=== PATIENT | male | born 1955 | race African-American/Black ===

== ENCOUNTER → 2019-06-07 17:23 | Outpatient (CLI) | payer MEDICAID ==
[~2019-06-07 17:23] MED LIST: COMBIGAN OPHT DR5 ML RIGHT EYE; FLORAJEN3 CAPS460 MG PO; GABAPENTIN100 MG PO; HUMULIN 70100 UNIT/1 SC; HYDROCHLOROTHIA25 MG PO; HYDROCODON-ACE1 EA10 PO; LEVAQUIN750 MG PO; LIPITOR40 MG PO; LUMIGAN 0.01%2.5 ML RIGHT EYE; PLAVIX75 MG PO; PRINIVIL20 MG PO; PROTONIX40 MG PO; TRUSOPT 2 % OPT10 ML RIGHT EYE
[2019-07-27 14:13] VITALS: BMI 36.6
== END | disposition home or self-care (01) ==
LOC: D.LABREF 17:23
PROVIDERS: ATTEND Podiatrist Foot & Ankle Surgery
DX: L03.115 Cellulitis of right lower limb (principal)

== ENCOUNTER → 2019-07-23 10:01 | Outpatient (CLI) | payer MEDICAID ==
[2019-07-27 14:13] VITALS: BMI 36.6
== END | disposition home or self-care (01) ==
LOC: D.CT 10:01
PROVIDERS: ATTEND Podiatrist Foot & Ankle Surgery
DX: E11.621 Type 2 diabetes mellitus with foot ulcer (principal); L97.519 Non-pressure chronic ulcer of other part of right foot with unspecified severity; I70.219 Atherosclerosis of native arteries of extremities with intermittent claudication, unspecified extremity

== ENCOUNTER 2019-07-26 12:17 | Inpatient (IN) | payer MEDICAID ==
[~2019-07-26] VITALS: Ht 167.6 cm; Wt 103.0 kg
--- NOTE | ~2019-07-26 | HEMODYNAMI ---
PATIENT:JIMENEZ MARTINEZ MEDICAL RECORD: [id number] : 53 LOCATION:D.MS [place] ADMISSION DATE: 07/26/19 Generatedon:07/28/201911:57 Patient name: JIMENEZ MARTINEZ Patient #: [id number] SSN: : 1955 Date of study: 07/28/2019 Page: Of Hemodynamic Procedure Report Patient Data Patient Demographics Procedure consent was obtained First Name: JIMENEZ Gender: Male Last Name: JUAN : 1955 Middle Initial: P Age: 63 year(s) Patient #: [id number] Race: Black Additional ID: [id number] Contact details Address: [address] [place] [address] State: [place] City: [place] Zip code: [address] Past Medical History Allergies: No known allergies Admission Admission Data Admission Date: 07/26/2019 Admission Time: 12:17 Room #: 2239 Height (in.): 66 BSA: 2.11 (m2) Height (cm.): 167.64 BMI: 36.48 (kg/m2) Weight (lbs.): 226 Weight (kg.): 102.51 Procedure Procedure Types Cath Procedure Peripheral Cath Diagnostic Procedure Seeing Eye Dog Trainer Peripheral Procedures Abd/Extremity Extremities Right Lower Ext Arterio Procedure Description Procedure Date Procedure Date: 07/28/2019 Procedure Start Time: 9:42 Procedure Staff Name Function Smita Lopez RT Resist Coater Developer Arcadio Stephen MD Additional personnel Robel Nam MD Performing Physician Sarah Ledbetter RN Nurse MICHAEL GUIDO RT Scrub Procedure Data Cath Procedure Fluoroscopy Diagnostic fluoroscopy Total fluoroscopy Time: time: 19.6 min 19.6 min Diagnostic fluoroscopy Total fluoroscopy dose: 882 dose: 882 mGy mGy Contrast Material Contrast Material Type Amount (ml) Isovue 300 190 Entry Location Entry Primary Successful Side Size Upsize Upsize Entry Closure Succes sful Closure Location (Fr) 1 (Fr) 2 (Fr) Remarks Device Remarks Femoral Exoseal artery Procedure Medications Medication Administration Route Dosage Heparin Flush Bag added to field 3 bags (1000units/500ml NS) Lidocaine 1% added to field 20 Heparin Bolus I.V. 5000 units Nitroglycerin IC/IA I.A. 300 mcg Nitroglycerin IC/IA I.A. 300 mcg Hemodynamics Rest BSA: 2.11 (m2) O2 Consumption: Estimated: 286.96 (ml/min) O2 Consumption indexed : Estimated:136 (ml/min/m) Pre Cath Intra NCS Post Cath Medications Time Medication Route Dose Verified Delivered Reason Notes Effec tiveness by by 9:26:26 Heparin Flush added 3 Robel Huston used for Bag to bags Viv Nam MD procedure (1000units/500ml field NS) 9:26:43 Lidocaine 1% added 20ml Robel Huston used for to vial Viv Nam MD procedure field 10:15:58 Heparin Bolus I.V. 5000 Robel Sarah used for units Anatoly Nam RN procedure 10:57:53 Nitroglycerin I.A. 300 Robel Huston used for IC/IA mcg Viv Nam MD procedure 11:31:48 Nitroglycerin I.A. 300 Robel Huston used for IC/IA mcg Viv Nam MD procedure MD Procedure Log Time Note 8:47:26 Patient Height : 66 inches 8:47:56 Patient Weight : 226 lbs 8:48:03 Use device set IR Diagnostic 8:48:05 Sterile Angiographic Pack opened to sterile field. 8:48:05 Tegaderm 4 x 4 (1626W) opened to sterile field. 8:48:06 Bag Decanter (2002S) opened to sterile field. 8:48:07 ACIST Manifold (09317) opened to sterile field. 8:48:08 ACIST Hand Control (10492) opened to sterile field. 8:48:09 ACIST Syringe (10556) opened to sterile field. 8:48:52 SHEATH 5FR Upton (QCV467) opened to sterile field. 8:48:52 BENTSON 145cm wire (F49112) opened to sterile field. 8:48:53 TUBING Contrast Injection High Pressure (MZC522W) opened to sterile field. 8:48:54 Micropuncture VSI 4FR kit opened to sterile field. 8:53:00 Sarah Ledbetter RN sent for patient. Start room use. 8:53:01 Time tracking: Regular hours (M-F 7:00 - 5:00) 8:53:06 Plan of Care:Hemodynamics will remain stable., Cardiac rhythm will remain stable., Comfort level will be maintained., Respiratory function will remain adequate., Patient/ family verbilizes understanding of procedure., Procedure tolerated without complication., Recovers from procedure without complications.. 8:53:15 Patient received from [employer] to Alert and oriented. Tansferred to table in Supine position. 8:53:18 Signed procedure consent form obtained from patient. 8:53:19 Warm blankets applied, and maria eugenia hugger turned on for patient comfort. 8:53:20 Correct patient and procedure confirmed by team. 8:53:21 ECG and BP/O2 sat monitors applied to patient. 8:53:22 - 8:53:30 H&P Date Dictated: 07/28/2019 Within 30 days and on chart.. 8:53:33 Pre-op teaching completed and patient verbalized understanding. 8:53:33 Pre-procedure instructions explained to patient. 8:53:36 Patient NPO since Midnight. 9:02:14 Patient allergic to No known allergies 9:02:20 Is the patient allergic to Iodine/contrast media? No. 9:02:36 Patient diabetic? Yes. 9:02:40 - 9:02:44 ----Pre-sedation anethsthesia assessment.----general anesthesia, see anesthesia notes for monitoring of patient during procedure 9:12:44 Previous problem with sedation/anesthesia? No ? 9:12:50 Pre procedure: right dorsailis pedis pulse Doppler 9:12:59 Pre procedure: left dorsailis pedis pulse Doppler 9:13:03 Pre procedure: right posterior tibial pulse Doppler 9:13:11 Pre procedure: left posterior tibial pulse Doppler 9:13:28 IV patent on arrival in right hand with D5/.45%NaCl at KVO. 9:13:37 Left groin area was prepped with chlora-prep and draped in sterile fashion 9:13:39 - 9:26:26 Heparin Flush Bag (1000units/500ml NS) 3 bags added to field was administered by Robel Nam MD; used for procedure; Verbal order read back and verified. 9:26:43 Lidocaine 1% 20ml vial added to field was administered by Robel Nam MD; used for procedure; Verbal order read back and verified. 9:41:54 --------ALL STOP TIME OUT------ 9:41:54 Physician arrived 9:41:56 Final Timeout: patient, procedure, and site verified with staff and physician. All members of the team are in agreement. 9:42:23 Fire Safety Assessment: A--An alcohol-based skin anteseptic being used preoperatively., C--Open oxygen or nitrous oxide is being used. 9:42:29 1) 90+ Normal kidney functon but urine findings or structural abnormalities or genetic trait point to kidney disease. 9:42:52 Full Disclosure recording started 9:42:52 Procedure started. 9:42:59 Local anesthetic to left femerol artery with Lidocaine 1% by Robel Nam MD.INITIAL ACCESS ONLY 9:43:02 Arterial access obtained using ultrasound guidance. 9:49:37 AMPLATZ Super Stiff 75cm wire ([id number]) opened to sterile field. 9:51:13 Angiodynamics Omniflush 5Fr 65cm (27177098) opened to sterile field. 9:52:21 GLIDE WIRE ANGLE 180cm (PQ1879) opened to sterile field. 9:56:40 GLIDE CATHETER 5FR ANGLED 65cm (CG507) opened to sterile field. 9:56:52 TORQUE DEVICE PLASTIC .038 ( TD01) opened to sterile field. 10:06:36 SHEATH 6FR Destination (RSR01) opened to sterile field. 10:08:08 ROADRUNNER .035 260 glide wire (G41038) opened to sterile field. 10:08:09 CXI SUPPORT .035 135 CM STR catheter (J72150) opened to sterile field. 10:08:19 ROUSSEAU 260 wire (W04454) opened to sterile field. 10:10:36 AMPLATZ Super stiff 180cm wire ([id number]) opened to sterile field. 10:12:36 SHEATH 6FR Upton (SQI567) opened to sterile field. 10:14:42 GLIDE WIRE ANGLE 260cm (IK8680) opened to sterile field. 10:15:58 Heparin Bolus 5000 units I.V. was administered by Sarah Ledbetter RN; used for procedure; Verbal order read back and verified. 10:22:27 CHOICE PT Extra Support J 300cm guide wire ([id number]) opened to steril e field. 10:23:12 Hawkone Medium Atherectomy System (H1-M) opened to sterile field. 10:27:49 INFLATOR BasixTOUCH (WQ4273) opened to sterile field. 10:34:51 Inflate balloon Inflation number: 1 A Evercross 5 x 8 x 135 Balloon ([id number]) was prepped and advanced across the Undefined1 , then inflated . 10:40:39 Inflate balloon Inflation number: 1 A Evercross 4 x 4 x 135 Balloon ([id number]) was prepped and advanced across the Undefined2 , then inflated . 10:45:55 Inflate balloon Inflation number: 2 A IN.PACT Admiral 4 x 80 x 130 DCB Balloon ([id number]) was prepped and advanced across the Undefined1 , then inflated to 0 DALLIN for 0:00 (min:sec) . 10:56:50 Inflate balloon Inflation number: 1 A CHOCOLATE 2.5 x 120 x 150 balloon ([id number]) was prepped and advanced across the Undefined3 , then inflated to 0 DALLIN for 0:00 (min:sec) . 10:57:53 Nitroglycerin IC/IA 300 mcg I.A. was administered by Robel Nam MD; used for procedure; Verbal order read back and verified. 11:16:58 Inflate balloon Inflation number: 1 A CHOCOLATE 3.0 x 120 x 150 balloon ([id number]) was prepped and advanced across the Undefined4 , then inflated . 11:24:44 Inflate balloon Inflation number: 1 A NANOCROSS ELITE 2.5MM-2 MM X 210 X 150 ([id number]) was prepped and advanced across the Undefined5 , then inflated . 11:31:48 Nitroglycerin IC/IA 300 mcg I.A. was administered by Robel Nam MD; used for procedure; Verbal order read back and verified. 11:47:48 EXOSEAL 6Fr (EX600) opened to sterile field. 11:48:18 Sheath removed intact; hemostasis achieved with Exoseal to the Femoral artery. 11:48:18 A sheath was inserted into the Femoral artery 11:49:05 Procedure ended.(Physican Out) 11:49:19 Fluoroscopy time 19.60 minutes. 11:49:29 Fluoroscopy dose: 882 mGy 11:49:29 Flurop Dose total: 882 11:49:38 Contrast amount:Isovue 300 190ml. 11:49:40 Procedure and supply charges have been captured, reviewed, submitted an d are correct. 11:51:06 Post Procedure Pulses reassessed and unchanged 11:51:11 Report given to Med/Surg. 11:51:50 Full Disclosure recording stopped Intervention Summary Intervention Notes Time ActionType Lesion and Equipment Used Action# Pressure Duration Attributes 10:34:51 Inflate Undefined1 Evercross 5 x 8 x 1 0 00:00 balloon 135 Balloon ([id number]) 10:40:39 Inflate Undefined2 Evercross 4 x 4 x 1 0 00:00 balloon 135 Balloon ([id number]) 10:45:55 Inflate Undefined1 IN.PACT Admiral 4 2 0 00:00 balloon x 80 x 130 DCB Balloon ([id number]) 10:56:50 Inflate Undefined3 CHOCOLATE 2.5 x 1 0 00:00 balloon 120 x 150 balloon ([id number]) 11:16:58 Inflate Undefined4 CHOCOLATE 3.0 x 1 0 00:00 balloon 120 x 150 balloon ([id number]) 11:24:44 Inflate Undefined5 NANOCROSS ELITE 1 0 00:00 balloon 2.5MM-2 MM X 210 X 150 ([id number]) Device Usage Item Name Manufacture Quantity Catalog Number [facility] nt Minimal Lot# / Charge Number Stock Stock Serial# Code Tegaderm 4 x 4 3M 1 1626W [id number] 139106 27490 1 5 (1626W) Sterile Cardinal 1 [id number] 609790 18824 3 5 Angiographic Pack Health Bag Decanter Microtek 1 2001S 922901 08351 07115 3 5 (2001S) Medical Inc. ACIST Manifold Acist Medical 1 82784 997689 821822 39716 7 5 (91754) Systems Inc ACIST Hand Acist Medical 1 45491 431876 020500 89587 1 5 Control (03053) Systems Inc ACIST Syringe Acist Medical 1 56680 419888 946339 16076 9 20 (46812) Systems Inc BENTSON 145cm Cook Medical 1 N84745 865606 94884 5 5 wire (U35194) SHEATH 5FR Terumo 1 CET911 991281 757126 84524 5 5 Upton (GAT275) TUBING Contrast [facility] Medical 1 MBM698F 469759 549531 35466 8 5 Injection High Pressure (KSL662C) Micropuncture VSI VSI VASCULAR 1 7266V 601109 69709 1 5 4FR kit SOLUTIONS AMPLATZ Super [place] 1 [id number] 607628 895353 89835 5 5 Stiff 75cm wire Scientific ([id number]) Angiodynamics Angiodynamics 1 55450673 657976 296379 91140 8 5 Omniflush 5Fr 65cm (94302077) GLIDE WIRE ANGLE Terumo 1 NY6567 041091 255939 77572 4 5 180cm (GU5992) GLIDE CATHETER Terumo 1 CG507 613145 85485 7 5 5FR ANGLED 65cm (CG507) TORQUE DEVICE [place] 1 TD01 816013 623535 70484 8 5 PLASTIC .038 ( Scientific TD01) SHEATH 6FR Terumo 1 RSR01 357325 78229 16911 5 5 Destination (RSR01) ROADRUNNER .035 Cook Medical 1 U33513 035854 469935 33863 3 5 [id number] 260 glide wire (N45867) CXI SUPPORT .035 [employer] Medical 1 V25838 774511 983956 23229 4 5 2134929 135 CM STR catheter (O59645) ROUSSEAU 260 wire [facility] 1 Z05928 400117 78014 30447 3 5 (B12519) AMPLATZ Super [place] 1 [id number] 748225 423349 94005 1 5 stiff 180cm wire Scientific ([id number]) SHEATH 6FR Terumo 1 HKK988 708470 094541 76872 8 40 Upton (AGZ296) GLIDE WIRE ANGLE Terumo 1 YR5072 282289 843547 99958 3 5 260cm (XO0030) CHOICE PT Extra [place] 1 [id number] 622514 528032 53616 0 5 Support J 300cm Scientific guide wire (8674984P7) Hawkone Medium Medtronic 1 H1-M 998391 58880 964 5 Atherectomy System (H1-M) INFLATOR [facility] Medical 1 HZ4844 305412 104685 16406 6 5 BasixTOUCH (GJ6570) Evercross 5 x 8 x Medtronic 1 [id number] 609845 405702 74698 5 5 135 Balloon ([id number]) Evercross 4 x 4 x Medtronic 1 [id number] 133075 304926 67123 1 5 135 Balloon ([id number]) IN.PACT Admiral 4 Medtronic 1 [id number] 749766 706371 28891 6 5 [id number] x 80 x 130 DCB Balloon ([id number]) CHOCOLATE 2.5 x Medtronic 1 FQ54-740-27110 185153 229832 12104 4 5 [id number] 120 x 150 balloon O [id number] ([id number]) TW [id number] CHOCOLATE 3.0 x Medtronic 1 KQ34-416-54535 846525 538691 35478 7 5 120 x 150 balloon O ([id number]) TW NANOCROSS ELITE Medtronic 1 [id number] 285476 88480 8 1 2.5MM-2 MM X 210 X 150 ([id number]) EXOSEAL 6Fr Cardinal 1 EX600 424305 499454 64126 3 10 (EX600) Health Signature Audit [place] Stage Time Signature Unsigned Intra-Procedure 07/28/2019 Smita Lopez RT(R) 11:51:40 AM RT(R) 07/28/2019 11:56:35 AM Intra-Procedure 07/28/2019 Smita Lopez 11:57:34 AM RT(R) [id number] [place] [address]
--- NOTE | 2019-07-26 12:40 | NUR ---
ARRIVED TO ROOM 2239 AWAKE AND ALERT. RESP EVEN AND UNLABORED WITH NO DISTRESS NOTED. CAN EXPRESS NEEDS AND WANTS. NO C/O NOTED OR VOICED. ASSESSMENT COMPLETED. FOUL ODOR NOTED FROM RIGHT FOOT. WOUND CLEAN WITH NS AND CLEAN DRESSING APPLIED. C/L IN REACH AT BEDSIDE.
[2019-07-26] MEDS ORDERED: GABAPENTIN100 MG PO (12:48)
[2019-07-26] MEDS ORDERED: HYDROCODON-ACE1 EA10 PO (12:49)
[2019-07-26] MEDS ORDERED: PRINIVIL20 MG PO (12:51)
[2019-07-26] MEDS ORDERED: HYDROCHLOROTHIA25 MG PO (12:53)
[2019-07-26] MEDS ORDERED: LIPITOR40 MG PO (12:53)
[2019-07-26] MEDS ORDERED: COMBIGAN OPHT DR5 ML RIGHT EYE (12:54)
[2019-07-26] MEDS ORDERED: LUMIGAN 0.01%2.5 ML RIGHT EYE (12:55)
[2019-07-26] MEDS ORDERED: TRUSOPT 2 % OPT10 ML RIGHT EYE (12:56)
[2019-07-26 14:56] VITALS: BP 140/63; BMI 36.7
[2019-07-26 16:34] VITALS: BP 120/66
[2019-07-26 16:59] LABS: BASOPHILS 0.4 % (0-2); EOSINOPHILS 0.3 % (0-7); HEMATOCRIT 38.4 % (42.0-54.0); HEMOGLOBIN 13.1 g/dL (13.5-17.5); IMMATURE GRANULOCYTES 0.5 % (0-5); LYMPHOCYTES 23.5 % (15-50); MCH 31.7 pg (26.0-34.0); MCHC 34.1 g/dL (31.0-37.0); MEAN PLATELET VOLUME 10.1 fL (7.4-10.4); MONOCYTES 8.6 % (2-11); NEUTROPHILS 66.7 % (40-80); RBC 4.13 10x6/uL (4.20-6.10); RDW 13.1 % (11.5-14.5)
[2019-07-26 17:01] LABS: PLATELET COUNT 256 10x3/uL (130-400)
[2019-07-26 17:22] LABS: ALBUMIN 2.7 g/dL (3.4-5.0); ALKALINE PHOSPHATASE 80 U/L (46-116); ALT (SGPT) 17 U/L (10-68); BILIRUBIN - TOTAL 0.76 mg/dL (0.2-1.3); CALC OSMOLALITY 281 mosm/kg (275-300); CALCIUM 8.4 mg/dL (8.5-10.1); CARBON DIOXIDE 26.8 mmol/L (21.0-32.0); CHLORIDE - SERUM 94 mmol/L (98-107); CREATININE - SERUM 0.9 mg/dL (0.6-1.3); PROTEIN - SERUM 7.1 g/dL (6.4-8.2); SODIUM 131 mmol/L (136-145); UREA NITROGEN 22 mg/dL (7-18); eGFR NON AFRICAN AMERICAN 90 mL/min (90-120)
[2019-07-26 17:37] LABS: GLUCOSE 391 mg/dL (74-106)
[2019-07-26 20:41] VITALS: BP 112/62
[2019-07-27] VITALS (13 sets, daily range): BP systolic 103–145; BP diastolic 57–84; Ht 167.6 cm; Wt 103.0 kg
--- NOTE | 2019-07-27 06:16 | NUR ---
I have reviewed this patient and I concur with the Shift Assessment completed by the Licensed Practical Nurse today this shift.
[2019-07-27 07:12] LABS: ALBUMIN 2.8 g/dL (3.4-5.0); ALKALINE PHOSPHATASE 82 U/L (46-116); ALT (SGPT) 20 U/L (10-68); BILIRUBIN - TOTAL 0.88 mg/dL (0.2-1.3); CALC OSMOLALITY 279 mosm/kg (275-300); CALCIUM 8.9 mg/dL (8.5-10.1); CARBON DIOXIDE 27.1 mmol/L (21.0-32.0); CHLORIDE - SERUM 98 mmol/L (98-107); CREATININE - SERUM 0.9 mg/dL (0.6-1.3); POTASSIUM - SERUM 4.3 mmol/L (3.5-5.1); PROTEIN - SERUM 7.6 g/dL (6.4-8.2); SODIUM 135 mmol/L (136-145); UREA NITROGEN 19 mg/dL (7-18); eGFR NON AFRICAN AMERICAN 90 mL/min (90-120)
[2019-07-27 07:13] LABS: GLUCOSE 251 mg/dL (74-106)
[2019-07-27 07:19] LABS: BASOPHILS 0.2 % (0-2); EOSINOPHILS 0.5 % (0-7); HEMATOCRIT 40.2 % (42.0-54.0); HEMOGLOBIN 13.7 g/dL (13.5-17.5); IMMATURE GRANULOCYTES 0.8 % (0-5); LYMPHOCYTES 23.3 % (15-50); MCH 31.6 pg (26.0-34.0); MCHC 34.1 g/dL (31.0-37.0); MCV 92.6 fL (80.0-100.0); MEAN PLATELET VOLUME 10.4 fL (7.4-10.4); NEUTROPHILS 67.2 % (40-80); PLATELET COUNT 281 10x3/uL (130-400); RBC 4.34 10x6/uL (4.20-6.10); RDW 12.9 % (11.5-14.5); WBC 12.9 10x3/uL (4.8-10.8)
--- NOTE | 2019-07-27 08:00 | NUR ---
PATIENT READY FOR SURGERY. NO NEEDS AT THIS TIME.
--- NOTE | 2019-07-27 10:26 | NUR ---
FAMILY CALLED WITH SECURITY CODE. ASKED HOW HE WAS. I INFORMED THEM THAT HE WAS IN SURGERY BUT FINE WHEN HE LEFT ME. ASKED WHETHER OR NOT THIS WAS CONSIDERED A "SIMPLE SURGERY." I RESPONDED THAT ALL SURGERY'S HAVE THE ABILITY TO HAVE COMPLICATIONS THIS WAS ROUTINE. A MALE VOICE INTERJECTED THAT I WAS SPEAKING TO A 19 YEAR NURSE WHO WAS 69 YR OLD AND WAS FEELING UNDER THE WEATHER. PHONE WAS THEN DISCONNECTED.
--- NOTE | 2019-07-27 13:44 | NUR ---
PATIENT REQUESTING A NAP. BP CUFF REATTACHED. PATIENT STATED "I CAN'T SLEEP WITH ALL THIS ON ME" I REPLIED IT WAS TEMPORARY. CL IN REACH. PHONE IN REACH. PHONE CORD UNTANGLED FROM IV LINE. WCTM
--- NOTE | 2019-07-27 14:21 | MORECARE ---
CASE MANAGEMENT DISCHARGE SUMMARY PATIENT: JIMENEZ MARTINEZ UNIT: [id number] ADM DATE: 07/26/19 AGE: 63 : 54 SEX: M ROOM/BED: D.2239 AUTHOR: JORGE GEE PHYSICIAN: REFERRING PHYSICIAN: SAMIR WALLIS MD DATE OF SERVICE: 07/27/19 Discharge Plan Patient Name: JIMENEZ MARTINEZ Facility: [facility]:[place] : 1955 Planned Disposition: Home Anticipated Discharge Date: 07/29/19 Discharge Date: Expected LOS: 3 Initial Reviewer: [email or web address] Initial Review Date: 07/26/2019 Generated: 07/27/19 3:20 pm Patient Name: JIMENEZ MARTINEZ Page 18323 at 1421 All edits/amendments must be made on the electronic document DICTATION DATE: 07/27/191419 MEMBER SERVICES REPRESENTATIVE: CHANDRAKANT 07/27/19 142 RPT#: [id number] DC DATE: STATUS: ADM IN [facility] [address] [place] [address] END OF REPORT
--- NOTE | 2019-07-27 14:30 | MORECARE ---
CASE MANAGEMENT DISCHARGE SUMMARY PATIENT: JIMENEZ MARTINEZ UNIT: [id number] ADM DATE: 07/26/19 AGE: 63 : 54 SEX: M ROOM/BED: D.2239 AUTHOR: GERARD,DOC PHYSICIAN: REFERRING PHYSICIAN: SAMIR WALLIS MD DATE OF SERVICE: 07/27/19 Discharge Plan Patient Name: JIMENEZ MARTINEZ Facility: [facility]:[place] : 1955 Planned Disposition: Home Anticipated Discharge Date: 07/29/19 Discharge Date: Expected LOS: 3 Initial Reviewer: [email or web address] Initial Review Date: 07/26/2019 Generated: 07/27/19 3:30 pm Comments DCP- Discharge Planning Updated by [email or web address]: Salena Reece on 07/27/19 1:[address] DC PLAN: Return home with friend. ANTICIPATED DC NEEDS: Denied known dc needs. CM met with patient to complete initial dc planning assessment. CM educated patient on the CM role and verbal consent given by patient to complete assessment. CM verified patient's address, phone number, and emergency contact phone numbers. Patient lives at home with a friend. He reports he is independent in his care at home. At discharge patient plans to return home and feels this is a safe discharge. CM discussed availability of home health, rehab services, and medical equipment. Patient denied known discharge needs at this time. Patient reports his friend Gaurav Schmitz will transport him home at time of discharge. CM left contact number and encouraged him to call if his dc plan changes or he has dc needs. CM will continue to follow and will assist as needed with dc plans/needs. Salena Reece RN, [facility] DCPIA - Discharge Planning Initial Assessment Updated by [email or web address]: Salena Reece on 07/27/19 2:21 pm * Is the patient Alert and Oriented? Yes * How many steps to enter\exit or inside your home? none * PCP Dr. Paris Mireles * Pharmacy [facility] * Preadmission Environment Home with Family * ADLs Independent * Equipment Glucometer * List name and contact numbers for known caregivers / representatives who currently or will assist patient after discharge: Bridget Jain - [employer]- [phone] * Verbal permission to speak to the caregivers and representatives has been obtained from the patient. Yes * Community resources currently utilized None * Additional services required to return to the preadmission environment? No * Can the patient safely return to the preadmission environment? Yes * Has this patient been hospitalized within the prior 30 days at any hospital? No Last DP export: 07/27/19 1:21 Patient Name: JIMENEZ MARTINEZ Page 11640 at 1430 All edits/amendments must be made on the electronic document DICTATION DATE: 07/27/191429 PRODUCTION PLANNING SUPERVISOR: CHANDRAKANT 07/27/191429 RPT#: [id number] DC DATE: STATUS: ADM IN [facility] [address] [place] [address] END OF REPORT
[2019-07-27] MEDS ORDERED: HUMULIN 70100 UNIT/1 SC (16:20)
--- NOTE | 2019-07-27 18:00 | NUR ---
PATIENT LAYING ON RIGHT SIDE. NOTICED SOME BLOODY DRAINAGE COMING THROUGH BANDAGE. TREATED PAIN PER EMAR. CL IN REACH. WCTM
[2019-07-28] VITALS (9 sets, daily range): BP systolic 16–136; BP diastolic 54–79
--- NOTE | 2019-07-28 03:12 | NUR ---
I have reviewed this patient and I concur with the Shift Assessment completed by the Licensed Practical Nurse today this shift.
[2019-07-28 06:42] LABS: ALBUMIN 2.6 g/dL (3.4-5.0); ALKALINE PHOSPHATASE 77 U/L (46-116); ALT (SGPT) 17 U/L (10-68); BILIRUBIN - TOTAL 0.71 mg/dL (0.2-1.3); CALC OSMOLALITY 277 mosm/kg (275-300); CALCIUM 8.8 mg/dL (8.5-10.1); CARBON DIOXIDE 29.2 mmol/L (21.0-32.0); CHLORIDE - SERUM 99 mmol/L (98-107); CREATININE - SERUM 0.9 mg/dL (0.6-1.3); GLUCOSE 227 mg/dL (74-106); POTASSIUM - SERUM 4.1 mmol/L (3.5-5.1); PROTEIN - SERUM 7.7 g/dL (6.4-8.2); SODIUM 135 mmol/L (136-145); eGFR NON AFRICAN AMERICAN 90 mL/min (90-120)
[2019-07-28 06:44] LABS: UREA NITROGEN 14 mg/dL (7-18)
[2019-07-28 06:57] LABS: APTT 33.6 SECONDS (22.8-39.4); INR 1.1 (0.85-1.17); PROTIME 13.7 SECONDS (11.6-15.0)
[2019-07-28 07:18] LABS: BASOPHILS 0.3 % (0-2); EOSINOPHILS 0.2 % (0-7); HEMOGLOBIN 13.5 g/dL (13.5-17.5); IMMATURE GRANULOCYTES 0.7 % (0-5); LYMPHOCYTES 18.7 % (15-50); MCH 31.2 pg (26.0-34.0); MCHC 32.9 g/dL (31.0-37.0); MEAN PLATELET VOLUME 10.6 fL (7.4-10.4); MONOCYTES 14.1 % (2-11); PLATELET COUNT 294 10x3/uL (130-400); RBC 4.33 10x6/uL (4.20-6.10); RDW 13.2 % (11.5-14.5); WBC 13.4 10x3/uL (4.8-10.8)
[2019-07-28 07:19] LABS: MCV 94.7 fL (80.0-100.0)
--- NOTE | 2019-07-28 09:30 | NUR ---
PATIENT ABLE TO ANSWER WHO HE IS, HIS DATE, WHERE HE IS, AND WHO THE PRESIDENT IS. WELL WHO I AM. CL IN REACH. NO NEEDS AT THIS TIME.
--- NOTE | 2019-07-28 10:00 | NUR ---
SPOKE WITH FAMILY. HAD THE SECURITY CODE "BUTTON" SAID PT WAS IN HIS PROCEDURE. SAID IT WAS CORRECT THAT HE HAD A PROCEDURE YESTERDAY AND AGAIN TODAY. FAMILY SPOKE ABOUT HOW PT WAS A "BIG TIME ALCOHOLIC AND SMOKER UNTIL 5-6 YRS AGO WHEN HE QUIT IT ALL." SAID "HOPEFULLY WOULD TRY AND GET UP HERE TODAY IF HIS MOM WAS FEELING BETTER BECAUSE THEY LIVE AN HOUR AWAY."
--- NOTE | 2019-07-28 12:55 | NUR ---
AT 1213 UPON ARRIVAL TO PACU, PATIENT WAS YELLING AND VERY COMBATIVE. HE CONTINUES TO CLIMB OUT OF BED. THREE POINT RESTRAINTS WERE PLACED AT THIS TIME. NINA CASTILLO CRNA ADMINISTERED VERSED 2MG IV X1 IN PACU. WILL CONTINUE TO MONITOR.
--- NOTE | 2019-07-28 12:55 | NUR ---
PATIENT EXCITED TO BE ABLE TO DISCHARGE. UP WALKING AROUND. NO NEEDS AT THIS TIME.
--- NOTE | 2019-07-28 13:08 | NUR ---
CONSULTED ANESTHESIA AT 1240 REGARDING INCREASED CONFUSION, AGGRESSIVE BEHAVIOR, COMBATIVE. ORDERS RECEIVED PER DR. CARRERA TO ADMINISTER VERSED 2MG IV X1 IN PACU NOW. ORDERS RECEIVED AND IMPLEMENTED. WILL CONTINUE TO MONITOR.
--- NOTE | 2019-07-28 14:10 | NUR ---
PT ARRIVED TO UNIT. PT RESTING IN BED CURRENTLY. ATTACHED TO ICU MONITOR. VSS. WILL CONTINUE TO MONITOR
--- NOTE | 2019-07-28 15:35 | NUR ---
REPORT RECIEVED FROM BOONE LUJAN.
--- NOTE | 2019-07-28 16:34 | NUR ---
PATIENT RESTING AT THIS TIME.
--- NOTE | 2019-07-28 16:34 | NUR ---
NO SIGNS OF BLEEDING. WEIGHT ON L GROIN. LEG STRAIGHT. PATIENT SEEMSM TO BE COOPERATIVE AT THIS TIME
--- NOTE | 2019-07-28 16:35 | NUR ---
4 UNITS OF INSULIN GIVEN PER MAR
--- NOTE | 2019-07-28 18:45 | NUR ---
no s/s of hematoma
--- NOTE | 2019-07-28 18:45 | NUR ---
incision site on left groin is soft with no signs of bleeding
--- NOTE | 2019-07-28 18:45 | NUR ---
time to keep leg straight and keeping pressure ended at 613
--- NOTE | 2019-07-28 19:54 | NUR ---
PT RECEIVED WITH EYES CLOSED AND CHEST RISING. NO S/S OF DISTRESS. EASILY AWOKEN TO VERBAL STIMULI. PT CALM UPON AWAKENING, ALERT AND ORIENTED. PRECEDEX STOPPED. PT GIVEN WATER AND TOLERATED WELL. NO NO OTHER NEEDS MADE KNOWN. WILL CONTINUE TO OBSERVE.
--- NOTE | 2019-07-28 22:06 | NUR ---
EVENING MEDICATIONS GIVEN. SANDWICH GIVEN WITH INSULIN. PT ATE HALF. RESTING WITH EYES CLOSED AND CHEST RISING. NO S/S OF DISTRESS. CALL LIGHT IN REACH. WILL CONTINUE TO OBSERVE
--- NOTE | 2019-07-28 22:52 | NUR ---
REPORT GIVEN AND TRANSFERRED TO 2239. PT TOLERATED WELL
--- NOTE | 2019-07-28 23:00 | NUR ---
RECEIVED TO FLOOR FROM ICU VIA BED. AOX4, WITHOUT DISTRESS. DRESSING TO LEFT GROIN CDI. DRESSING TO RIGHT FOOT CDI. IV RIGHT HAND INFUSING NS @ KVO. REQUESTED PAIN MEDICATION, GAVE NORCO ORDERED. DENIES OTHER NEEDS. WILL CTM
[2019-07-29 00:52] VITALS: BP 99/64
--- NOTE | 2019-07-29 02:00 | NUR ---
PT REQUESTING PAIN MEDICATOIN FOR PAIN AND BURNING IN RIGHT FOOT, GAVE MORPHINE ORDERED. DENIES OTHER NEEDS. WILL CTM
--- NOTE | 2019-07-29 03:30 | NUR ---
PT STATES PAIN 10/10 AND CANNOT WAIT FOR NEXT PAIN MEDICATOIN TO BE DUE. CALLED MARKY BIGGS ACTUARIAL CLERK, ORDERS RECEIVED FOR ONE TIME NORCO 5 NOW AND TO CHANGE PRN MORPHINE DOSAGE TO 4MG. GAVE NORCO. WILL CTM
[2019-07-29 05:00] VITALS: BP 104/61
[2019-07-29 07:24] LABS: BASOPHILS 0.3 % (0-2); EOSINOPHILS 0.3 % (0-7); IMMATURE GRANULOCYTES 1.7 % (0-5); LYMPHOCYTES 28.6 % (15-50); MCH 26.2 pg (26.0-34.0); MCV 100.6 fL (80.0-100.0); MEAN PLATELET VOLUME 11.5 fL (7.4-10.4); MONOCYTES 11.2 % (2-11); NEUTROPHILS 57.9 % (40-80); PLATELET COUNT 322 10x3/uL (130-400); RBC 4.97 10x6/uL (4.20-6.10); RDW 16.8 % (11.5-14.5); WBC 16.3 10x3/uL (4.8-10.8)
--- NOTE | 2019-07-29 07:32 | NUR ---
[facility] WITH LAB CALLED TO REPORT BLOOD GLUCOSE OF 38. UPON ENTERING PT ROOM PT WITH AAO X 4. KARLIEWHICH TRAY AT BEDSIDE 95% CONSUMED. PT DENIES PRESENCE OF DIZZINESS/NAUSEA/VOMITING AND REPORTS THAT HE IS "FEELING BETTER" SINCE EATING. GLUCOMETERREADING SHOWS FSBS @ 146 AT THIS TIME. PT REPORTS PAIN TO RIGHT FOOT. WILL ADDRESS. SEE EMAR. PT DENIES FURTHER NEEDS. BED IS IN THE LOWEST POSITION. CALL LIGHT AND BEDSIDE TABLE ARE WITHIN REACH. SIDE RAILS X 2. WILL CONT TO MONITOR.
--- NOTE | 2019-07-29 07:40 | NUR ---
BERTHA DE LEÓN APRN PAGED TO NOTIFY OF LAB RESULT AND PT STATUS.
--- NOTE | 2019-07-29 07:50 | NUR ---
BERTHA DE LEÓN APRN RETURNED PAGED AND NOTIFIED OF CRITICAL LAB AND PT STATUS. TELEPHONE ORDERS RECD ARE TO HOLD ANY LONG ACTING INSULIN ORDERED AT BREAKFAST.
[2019-07-29 08:12] LABS: ALBUMIN 2.3 g/dL (3.4-5.0); ANION GAP 13.2 mmol/L (8-16); BILIRUBIN - TOTAL 0.56 mg/dL (0.2-1.3); CALCIUM 7.9 mg/dL (8.5-10.1); CARBON DIOXIDE 27.6 mmol/L (21.0-32.0); CREATININE - SERUM 1.1 mg/dL (0.6-1.3); POTASSIUM - SERUM 3.8 mmol/L (3.5-5.1); PROTEIN - SERUM 6.5 g/dL (6.4-8.2)
[2019-07-29 08:45] VITALS: BP 107/55
[2019-07-29 12:13] VITALS: BP 130/73
[2019-07-29 16:27] VITALS: BP 110/74
[2019-07-29 19:30] VITALS: BP 119/62
--- NOTE | 2019-07-29 23:02 | NUR ---
2000) REC'D DURING SHIFT CHGE WALKING ROUNDS REQUESTING PAIN MED FOR RIGHT FOOT DRSG. INTACT WITH DOME DRY BLOODY DRAINAGE AREA NOTED LATERAL SIDE OF FOOT.WILL CONTINUE TO MONITOR FOR ANY CHGES IN NEUROVASCULAR STATUS AND FOLLOW CURRENT PLAN OF CARE
[2019-07-30 00:30] VITALS: BP 139/76
--- NOTE | 2019-07-30 00:39 | NUR ---
I have reviewed this patient and I concur with the Shift Assessment completed by the Licensed Practical Nurse today this shift.
[2019-07-30 04:52] VITALS: BP 121/70
[2019-07-30 07:36] LABS: ALBUMIN 2.4 g/dL (3.4-5.0); BILIRUBIN - TOTAL 0.6 mg/dL (0.2-1.3); CALCIUM 8.5 mg/dL (8.5-10.1); CARBON DIOXIDE 22.4 mmol/L (21.0-32.0); CREATININE - SERUM 1.3 mg/dL (0.6-1.3); PROTEIN - SERUM 7.1 g/dL (6.4-8.2)
[2019-07-30 07:38] LABS: ANION GAP 17.6 mmol/L (8-16)
[2019-07-30 08:13] LABS: BASOPHILS 0.2 % (0-2); EOSINOPHILS 0.5 % (0-7); HEMOGLOBIN 12.9 g/dL (13.5-17.5); IMMATURE GRANULOCYTES 0.7 % (0-5); LYMPHOCYTES 24.8 % (15-50); MCH 31.5 pg (26.0-34.0); MCHC 33.2 g/dL (31.0-37.0); MEAN PLATELET VOLUME 9.8 fL (7.4-10.4); MONOCYTES 6.2 % (2-11); NEUTROPHILS 67.6 % (40-80); PLATELET COUNT 313 10x3/uL (130-400); RBC 4.09 10x6/uL (4.20-6.10); RDW 13.2 % (11.5-14.5); WBC 12.1 10x3/uL (4.8-10.8)
[2019-07-30 08:14] LABS: HEMATOCRIT 38.9 % (42.0-54.0); MCV 95.1 fL (80.0-100.0)
--- NOTE | 2019-07-30 09:00 | NUR ---
ALERT AND ORIENTED X4 WITH CONTINUED ISOLATION. DRESSING INTACT TO RT. FOOT WITH NO PERIPHERAL EDEMA NOTED . IVF INFUSING AT PRESCRIBED RATED WITH LORTAB GIVEN PRN FOR PAIN. HRRR AND DENEIS ;ANY CHEST PAIN OR DISCOMFORT. LUNGS CTA. ENCOURAGED TO ;USE CALL LIGHT FOR ASSIST
[2019-07-30 09:21] VITALS: BP 120/60
--- NOTE | 2019-07-30 12:39 | NUR ---
NUTRITION F/U PT REMAINS IN ISOLATION. DIABETIC DIET WITH 75% INTAKE BREAKFAST. WILL CONTINUE TO PROVIDE DIET, MONITOR PO INTAKE. RD FOLLOWING
[2019-07-30 12:59] VITALS: BP 143/73
[2019-07-30 16:13] VITALS: BP 122/63
--- NOTE | 2019-07-30 19:00 | NUR ---
BEDSIDE REPORT RECEIVED AND CARE OF PT ASSUMED. PT LYING IN LOW DELANEY'S POSITION WATCHING TV. NO IV AT THIS TIME. PT ON CONTACT ISOLATION FOR MRSA. WILL MONITOR FOR NEEDS.
[2019-07-30 20:00] VITALS: BP 98/40
--- NOTE | 2019-07-30 21:06 | NUR ---
ASSESSED BLOOD PRESSURE PRIOR TO ADMINISTERING PAIN MEDICATION AND HS MEDICATIONS. BP CURRENTLY 140/87. RECHECKED AND 140/90 IN DIFFERENT AREA. WILL ADMINISTER MEDICATIONS ACCORDINGLY.
--- NOTE | 2019-07-30 21:19 | NUR ---
HS MEDICATIONS GIVEN. FSBS 248 THIS CHECK REQUIRING COVERAGE WITH 4 UNITS OF INSULIN.
[2019-07-31] VITALS: BP 147/94
[2019-07-31 04:00] VITALS: BP 137/88
[2019-07-31 07:05] LABS: BASOPHILS 0.2 % (0-2); EOSINOPHILS 0.7 % (0-7); HEMATOCRIT 39.2 % (42.0-54.0); HEMOGLOBIN 13.3 g/dL (13.5-17.5); IMMATURE GRANULOCYTES 0.9 % (0-5); MCH 31.8 pg (26.0-34.0); MCHC 33.9 g/dL (31.0-37.0); MCV 93.8 fL (80.0-100.0); MEAN PLATELET VOLUME 9.9 fL (7.4-10.4); NEUTROPHILS 63.2 % (40-80); PLATELET COUNT 317 10x3/uL (130-400); RBC 4.18 10x6/uL (4.20-6.10); RDW 13.3 % (11.5-14.5); WBC 11.6 10x3/uL (4.8-10.8)
--- NOTE | 2019-07-31 07:23 | NUR ---
PT LYING IN BED, AWAKE ALERT, NO S/ SX OF DISTRESS, CL IN REACH NO NEEDS VOICED, ASSUME PT CARE
[2019-07-31 07:26] LABS: ALBUMIN 2.4 g/dL (3.4-5.0); ALKALINE PHOSPHATASE 73 U/L (46-116); ALT (SGPT) 22 U/L (10-68); BILIRUBIN - TOTAL 0.36 mg/dL (0.2-1.3); CALCIUM 9.2 mg/dL (8.5-10.1); CARBON DIOXIDE 25.3 mmol/L (21.0-32.0); CHLORIDE - SERUM 103 mmol/L (98-107); PROTEIN - SERUM 7.9 g/dL (6.4-8.2); SODIUM 139 mmol/L (136-145); UREA NITROGEN 13 mg/dL (7-18)
[2019-07-31 07:27] LABS: CALC OSMOLALITY 277 mosm/kg (275-300); CREATININE - SERUM 0.9 mg/dL (0.6-1.3); GLUCOSE 90 mg/dL (74-106); POTASSIUM - SERUM 3.8 mmol/L (3.5-5.1); eGFR NON AFRICAN AMERICAN 90 mL/min (90-120)
[2019-07-31 08:26] VITALS: BP 150/89
[2019-07-31 12:43] VITALS: BP 119/59
--- NOTE | 2019-07-31 14:44 | NUR ---
PT SITTING UP IN BED WITH EYES OPEN WATCHING TV. NO S/S OF DISTRESS AT THIS TIME , DENIES NEEDS AT THIS TIME. WILL CONT TO MONITOR.
[2019-07-31 16:23] VITALS: BP 107/58
[2019-07-31 20:00] VITALS: BP 103/54
[2019-08-01] VITALS: BP 110/63
[2019-08-01 05:45] LABS: BASOPHILS 0.2 % (0-2); EOSINOPHILS 0.5 % (0-7); HEMATOCRIT 39.1 % (42.0-54.0); HEMOGLOBIN 12.9 g/dL (13.5-17.5); LYMPHOCYTES 28.5 % (15-50); MCH 31.4 pg (26.0-34.0); MCV 95.1 fL (80.0-100.0); MONOCYTES 8.8 % (2-11); PLATELET COUNT 340 10x3/uL (130-400); RBC 4.11 10x6/uL (4.20-6.10); RDW 13.4 % (11.5-14.5); WBC 12.4 10x3/uL (4.8-10.8)
[2019-08-01 06:15] LABS: ALBUMIN 2.2 g/dL (3.4-5.0); ANION GAP 12.2 mmol/L (8-16); BILIRUBIN - TOTAL 0.24 mg/dL (0.2-1.3); CARBON DIOXIDE 27.1 mmol/L (21.0-32.0); CREATININE - SERUM 1.1 mg/dL (0.6-1.3); POTASSIUM - SERUM 4.3 mmol/L (3.5-5.1); PROTEIN - SERUM 7.5 g/dL (6.4-8.2)
[2019-08-01 07:57] VITALS: BP 121/68
[2019-08-01] MEDS ORDERED: FLORAJEN3 CAPS460 MG PO (12:08)
[2019-08-01] MEDS ORDERED: PLAVIX75 MG PO ×2 (12:08→12:24)
[2019-08-01] MEDS ORDERED: LEVAQUIN750 MG PO ×2 (12:08→12:24)
[2019-08-01] MEDS ORDERED: PROTONIX40 MG PO (12:08)
[2019-08-01 12:11] VITALS: BP 115/63
--- NOTE | 2019-08-01 12:56 | NUR ---
RX FOR PROTONIX AND PROBIOTIC CALLED TO [facility].
--- NOTE | 2019-08-01 12:57 | MORECARE ---
CASE MANAGEMENT DISCHARGE SUMMARY PATIENT: JIMENEZ MARTINEZ UNIT: [id number] ADM DATE: 07/26/19 AGE: 63 : 53 SEX: M ROOM/BED: D.2239 AUTHOR: JORGE GEE PHYSICIAN: REFERRING PHYSICIAN: SAMIR WALLIS MD DATE OF SERVICE: 08/01/19 Discharge Plan Patient Name: JIMENEZ MARTINEZ Facility: [facility]:[place] : 1955 Planned Disposition: Home Anticipated Discharge Date: 07/29/19 Discharge Date: Expected LOS: 3 Initial Reviewer: [email or web address] Initial Review Date: 07/26/2019 Generated: 08/01/19 1:57 pm Comments DCP- Discharge Planning Updated by [email or web address]: Jodie Hi on 08/01/19 11:[address] Patient Name: JIMENEZ MARTINEZ Admission Status: Elective Accout number: [id number] Admission Date: 07-26-2019 : 1955 Admission Diagnosis:TYPE 2 DIABETES MELLITUS WITH FOOT ULCER Attending: ALEXANDRA Current LOS: 6 Anticipated DC Date: 07-29-2019 Planned Disposition: Home Primary Insurance: MED[place]ID [place] Discharge Planning Comments: CM MET WITH PATIENT TO DISCUSS HH. 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 KEIRY REFUSAL PLACED ON CHART. CM TO FOLLOW. Building Maintenance Repairer: Jodie Hi DCP- Discharge Planning Updated by [email or web address]: Salena Reece on 07/27/19 1:[address] DC PLAN: Return home with friend. ANTICIPATED DC NEEDS: Denied known dc needs. CM met with patient to complete initial dc planning assessment. CM educated patient on the CM role and verbal consent given by patient to complete assessment. CM verified patient's address, phone number, and emergency contact phone numbers. Patient lives at home with a friend. He reports he is independent in his care at home. At discharge patient plans to return home and feels this is a safe discharge. CM discussed availability of home health, rehab services, and medical equipment. Patient denied known discharge needs at this time. Patient reports his friend Gaurav Schmitz will transport him home at time of discharge. CM left contact number and encouraged him to call if his dc plan changes or he has dc needs. CM will continue to follow and will assist as needed with dc plans/needs. Salena Reece RN, CCM DCPIA - Discharge Planning Initial Assessment Updated by [id number]: Salena Reece on 07/27/19 2:21 pm * Is the patient Alert and Oriented? Yes * How many steps to enter\exit or inside your home? none * PCP Dr. Paris Mireles * Pharmacy [facility] * Preadmission Environment Home with Family * ADLs Independent * Equipment Glucometer * List name and contact numbers for known caregivers / representatives who currently or will assist patient after discharge: Bridget Jain - [place]- [phone] * Verbal permission to speak to the caregivers and representatives has been obtained from the patient. Yes * Community resources currently utilized None * Additional services required to return to the preadmission environment? No * Can the patient safely return to the preadmission environment? Yes * Has this patient been hospitalized within the prior 30 days at any hospital? 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 Last DP export: 07/27/19 1:30 Patient Name: JIMENEZ MARTINEZ Page [id number] at 1257 All edits/amendments must be made on the electronic document DICTATION DATE: 08/01/19 1257 RENEWABLE ENERGY ENGINEER: CHANDRAKANT 08/01/19 1257 RPT#: [id number] DC DATE: STATUS: ADM IN [facility] [address] [place] [address] END OF REPORT
--- NOTE | 2019-08-01 14:16 | NUR ---
NO CHANGE IN ASSESSMENT. TO [place] HOME TODAY.
--- NOTE | 2019-08-01 16:06 | NUR ---
TO DC HOME WITH FAMILY. TO DO DRESSING CHANGES TO R FOOT. PATIENT REFUSED HOME HEALTH. AWAITING HIS RIDE HOME. DC INSTRUCTIONS GIVEN/VERBALIZES UBDERSTANDING. NO CHANGE IN ASSESSMENT.
[2019-08-01 16:19] VITALS: BP 126/69
--- NOTE | 2019-08-01 18:33 | NUR ---
ASSISTED TO CAR PER STAFF IN WC FOR CT HOME.
--- NOTE | 2019-08-03 15:52 | MORECARE ---
CASE MANAGEMENT DISCHARGE SUMMARY PATIENT: JIMENEZ MARTINEZ UNIT: [id number] ADM DATE: 07/26/19 AGE: 63 : 53 SEX: M ROOM/BED: D.2239 AUTHOR: JORGE GEE PHYSICIAN: REFERRING PHYSICIAN: SAMIR WALLIS MD DATE OF SERVICE: 08/03/19 Discharge Plan Patient Name: JIMENEZ MARTINEZ Facility: [facility]:[place] : 1955 Planned Disposition: Home Anticipated Discharge Date: 07/29/19 Discharge Date: 08/01/2019 Expected LOS: 3 Initial Reviewer: [email or web address] Initial Review Date: 07/26/2019 Generated: 08/03/19 4:52 pm Comments DCP- Discharge Planning Updated by [email or web address]: Jodie Hi on 08/01/19 11:[address] Patient Name: JIMENEZ MARTINEZ Admission Status: Elective Accout number: [id number] Admission Date: 07-26-2019 : 1955 Admission Diagnosis:TYPE 2 DIABETES MELLITUS WITH FOOT ULCER Attending: ALEXANDRA Current LOS: 6 Anticipated DC Date: 07-29-2019 Planned Disposition: Home Primary Insurance: [place]ID [place] Discharge Planning Comments: CM MET WITH PATIENT TO DISCUSS HH. 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 KEIRY REFUSAL PLACED ON CHART. CM TO FOLLOW. Flour Mixer: Jodie Hi DCP- Discharge Planning Updated by [email or web address]: Salena Reece on 07/27/19 1:[address] DC PLAN: Return home with friend. ANTICIPATED DC NEEDS: Denied known dc needs. CM met with patient to complete initial dc planning assessment. CM educated patient on the CM role and verbal consent given by patient to complete assessment. CM verified patient's address, phone number, and emergency contact phone numbers. Patient lives at home with a friend. He reports he is independent in his care at home. At discharge patient plans to return home and feels this is a safe discharge. CM discussed availability of home health, rehab services, and medical equipment. Patient denied known discharge needs at this time. Patient reports his friend Gaurav Schmitz will transport him home at time of discharge. CM left contact number and encouraged him to call if his dc plan changes or he has dc needs. CM will continue to follow and will assist as needed with dc plans/needs. Salena Reece RN, CCM DCPIA - Discharge Planning Initial Assessment Updated by [email or web address]: Salena Reece on 07/27/19 2:21 pm * Is the patient Alert and Oriented? Yes * How many steps to enter\exit or inside your home? none * PCP Dr. Paris Mireles * Pharmacy [facility] * Preadmission Environment Home with Family * ADLs Independent * Equipment Glucometer * List name and contact numbers for known caregivers / representatives who currently or will assist patient after discharge: Bridget Jain - [place]- [phone] * Verbal permission to speak to the caregivers and representatives has been obtained from the patient. Yes * Community resources currently utilized None * Additional services required to return to the preadmission environment? No * Can the patient safely return to the preadmission environment? Yes * Has this patient been hospitalized within the prior 30 days at any hospital? 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 Last DP export: 08/01/19 11:57 a Patient Name: JIMENEZ MARTINEZ Page [phone] at 1552 All edits/amendments must be made on the electronic document DICTATION DATE: 08/03/19 1552 ELECTRONIC WARFARE OFFICER: CHANDRAKANT 08/03/19 1552 RPT#: [id number] DC DATE:08/01/19 STATUS: DIS IN [facility] [address] [place] [address] END OF REPORT
== END 2019-08-01 18:34 | disposition home or self-care (01) | DRG 616 ==
LOC: D.MS 12:17 → D.ICU 07-28 13:37 → D.MS 07-28 22:49
PROVIDERS: Family Medicine; General Practice; Podiatrist Foot & Ankle Surgery; ADMIT Family Medicine; ATTEND Family Medicine
PROC: 0Y6X0Z0 Detachment at Right 5th Toe, Complete, Open Approach (ICD-10-PCS; principal; 2019-07-27 10:30)
PROC: 0YBM0ZZ Excision of Right Foot, Open Approach (ICD-10-PCS; 2019-07-27 10:30)
PROC: 04CK3ZZ Extirpation of Matter from Right Femoral Artery, Percutaneous Approach (ICD-10-PCS; 2019-07-28)
PROC: 047K3Z1 Dilation of Right Femoral Artery using Drug-Coated Balloon, Percutaneous Approach (ICD-10-PCS; 2019-07-28)
PROC: 047R3Z1 Dilation of Right Posterior Tibial Artery using Drug-Coated Balloon, Percutaneous Approach (ICD-10-PCS; 2019-07-28)
PROC: 047P3Z1 Dilation of Right Anterior Tibial Artery using Drug-Coated Balloon, Percutaneous Approach (ICD-10-PCS; 2019-07-28)
PROC: 047T3Z1 Dilation of Right Peroneal Artery using Drug-Coated Balloon, Percutaneous Approach (ICD-10-PCS; 2019-07-28)
PROC: B41F1ZZ Fluoroscopy of Right Lower Extremity Arteries using Low Osmolar Contrast (ICD-10-PCS; 2019-07-28)
DX: E11.621 Type 2 diabetes mellitus with foot ulcer (principal); A48.0 Gas gangrene; G93.41 Metabolic encephalopathy; L97.516 Non-pressure chronic ulcer of other part of right foot with bone involvement without evidence of necrosis; L03.116 Cellulitis of left lower limb; F17.203 Nicotine dependence unspecified, with withdrawal; L02.611 Cutaneous abscess of right foot; E11.52 Type 2 diabetes mellitus with diabetic peripheral angiopathy with gangrene; E11.65 Type 2 diabetes mellitus with hyperglycemia; I10 Essential (primary) hypertension; E66.9 Obesity, unspecified; Z68.36 Body mass index [BMI] 36.0-36.9, adult; T42.4X5A Adverse effect of benzodiazepines, initial encounter

== ENCOUNTER 2019-09-07 09:06 | Day surgery (SDC) | payer MEDICAID ==
[2019-09-06 09:59] LABS: CALC OSMOLALITY 291 mosm/kg (275-300); CALCIUM 9.3 mg/dL (8.5-10.1); CARBON DIOXIDE 31.5 mmol/L (21.0-32.0); CHLORIDE - SERUM 101 mmol/L (98-107); CREATININE - SERUM 0.9 mg/dL (0.6-1.3); POTASSIUM - SERUM 4.3 mmol/L (3.5-5.1); SODIUM 139 mmol/L (136-145); UREA NITROGEN 23 mg/dL (7-18); eGFR NON AFRICAN AMERICAN 90 mL/min (90-120)
[2019-09-06 10:01] LABS: GLUCOSE 278 mg/dL (74-106)
[2019-09-06 10:07] LABS: HEMATOCRIT 41.4 % (42.0-54.0); HEMOGLOBIN 13.9 g/dL (13.5-17.5); MCH 31.7 pg (26.0-34.0); MCHC 33.6 g/dL (31.0-37.0); MCV 94.5 fL (80.0-100.0); MEAN PLATELET VOLUME 9.8 fL (7.4-10.4); RBC 4.38 10x6/uL (4.20-6.10); WBC 9.2 10x3/uL (4.8-10.8)
[~2019-09-07] VITALS: Ht 167.6 cm; Wt 101.2 kg
[~2019-09-07 09:06] MED LIST changes: +ASPIRIN EC81 M1 PO
[2019-09-07 09:35] VITALS: BP 100/53; Ht 167.6 cm; Wt 101.2 kg
--- NOTE | 2019-09-07 10:13 | NUR ---
ANESTHESIA CALLED AT THIS TIME TO INFORM THEM THAT PT WOULD LIKE TO SPEAK TO ANESTHIESIA PRIOR TO SIGNING CONSENT. DR GRIFFIN STATES THAT HE WILL BE IN TO SPEAK WITH PT SHORTLY.
--- NOTE | 2019-09-07 17:03 | NUR ---
2971 DR. DYAN CHASE GIVES PT AND FAMILY INSTRUCTIONS TO NON WEIGHT BEARING AND TO CALL OFFICE TOMORROW AND TO CONTINUE HOME MEDICATIONS AND TO LEAVE PRESENT DRESSING UNDISTURBED AND CLEAN AND DRY.
--- NOTE | 2019-09-07 17:54 | NUR ---
1750 ASSISSTED PT WITH DRESSING, AWAITING FAMILY RETURN TO TAKE PT HOME.
== END 2019-09-07 19:00 | disposition home or self-care (01) ==
LOC: D.OPS 09:06
PROVIDERS: Anesthesiology; ATTEND Podiatrist Foot & Ankle Surgery
DX: E11.621 Type 2 diabetes mellitus with foot ulcer (principal); L97.519 Non-pressure chronic ulcer of other part of right foot with unspecified severity; E11.52 Type 2 diabetes mellitus with diabetic peripheral angiopathy with gangrene; A48.0 Gas gangrene; I10 Essential (primary) hypertension